=== PATIENT | female | born 1980 | race Caucasian/White ===

== ENCOUNTER 2023-12-19 10:37 | Emergency (ER) | payer OTHER, SELFPAY ==
--- NOTE | 2023-12-19 10:39 | ED.DENTAL ---
HPI - Dental/Oral General Chief complaint: Dental/Oral Stated complaint: Dental Pain Time Seen by Provider: 12/19/23 10:39 Source: patient Mode of arrival: ambulatory Limitations: no limitations History of Present Illness HPI Narrative: Patient is a 43-year-old female that presents with left lower dental and jaw pain that started yesterday. Patient has multiple decayed teeth. Reports dentist wants her to have all the teeth pulled and dentures placed has not committed. Patient was seen by PCP on and was not having dental pain at that time. Denies any better taste in mouth, difficulty swallowing. Patient call dentist and not able to get in for 2 weeks. Related Data Allergies Allergy/AdvReac Type Severity Reaction Status Date / Time No Known Allergies Allergy Unknown Verified 12/19/23 10:52 Review of Systems Review of Systems: All systems reviewed & are unremarkable except as noted in HPI and below Constitutional: Constitutional: Denies body ache(s), Denies fever(s), Denies headache(s), Denies malaise and Denies weakness Eyes: Eyes: Denies loss of vision ENT: Denies otalgia, Reports facial pain (jaw), Denies headache(s), Denies nasal discharge, Denies sinus pain and Denies sore throat Cardiovascular: Cardiovascular: Denies chest pain, Denies irregular heart rhythm and Denies dyspnea Respiratory: Respiratory: Denies dyspnea Gastrointestinal: Gastrointestinal: Denies abdominal pain, Denies melena, Denies hematochezia, Denies diarrhea, Denies nausea and Denies vomiting Musculoskeletal: Musculoskeletal: Denies back pain, Denies myalgias and Denies arthralgias Integumentary/Breasts: Skin/Breast: Denies pruritus and Denies rash Neurologic: Denies headache(s), Denies loss of vision and Denies weakness Psychiatric: Psychiatric: Reports no additional psychiatric complaints PMFSH Past Medical History Medical History Anxiety disorder Breast asymmetry Frequent headaches Iron deficiency Psoriasis Psoriatic arthritis Screening mammogram, encounter for Vaginal delivery [facility] no complications 04/17/07 [facility] no complications 01/31/15 [facility] no complications Surgical History Surgical History History of dilation and curettage (11/12/19) Hysteroscopy D&C Lscope BL tubal ligation, Darshana Ablation; Menometrorrhagia, undesired fertility History of endometrial ablation (11/12/19) Hysteroscopy D&C Lscope BL tubal ligation, Adrshana Ablation; Menometrorrhagia, undesired fertility History of tubal ligation (11/12/19) Family History Family History Father Alcohol abuse Sibling Alcohol abuse brother Diabetes mellitus Mother Asthma Son Asthma Depression Social History Social History Smoking packs per day: 0.5 Smoking cigarettes per day: 10.0 Smoking status: Current every day smoker Tobacco type: cigarettes Alcohol intake: never Substance use: never Substance use type: does not use Living arrangements: other Additional living arrangements comments: single 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 There is no relevant family history pertinent to the presenting complaint. Exam Const: General: cooperative, healthy appearing, comfortable, no acute distress and well nourished Nutritional Appearance: well nourished Orientation/consciousness: patient oriented x3 Limitations: no limitations HENMT: Head: normal to inspection, normocephalic and atraumatic Ears: hearing
[2023-12-19 10:49] VITALS: BP 126/63; PULSE 97; RESP 16; TEMP 36.9; O2SAT 100
== END 2023-12-19 11:08 | disposition home or self-care (01) ==
PROVIDERS: Emergency Provider Nurse Practitioner Family; PCP Nurse Practitioner Family
DX: K04.7 Periapical abscess without sinus (principal); F17.210 Nicotine dependence, cigarettes, uncomplicated; L40.9 Psoriasis, unspecified; L40.50 Arthropathic psoriasis, unspecified
CPT/HCPCS: 99213; G0463

== ENCOUNTER 2024-11-13 09:52 | Emergency (ER) | payer OTHER, SELFPAY ==
--- NOTE | 2024-11-13 09:56 | ED_ITS ---
HPI - Dental/Oral General Chief complaint: Dental/Oral Stated complaint: Dental Pain Time Seen by Provider: 11/13/24 09:55 Source: patient Mode of arrival: ambulatory Limitations: no limitations History of Present Illness HPI Narrative: Patient is a 44-year-old female that presents with right lower dental pain and ear pain that started last night. Patient has lower right jaw swelling and tenderness. Denies any fever, chills, nausea, vomiting, diarrhea. Patient called the dentist and has appointment next week. Related Data Home Medications ?Medication ?Instructions ?Recorded ?Confirmed ?Last Taken ?Type adalimumab 40 mg/0.4 mL 40 mg subcut DAILY 02/25/24 06/18/24 Unknown History subcutaneous pen kit (Humira(CF) Pen) folic acid 1 mg tablet 1 mg PO DAILY 02/25/24 06/18/24 Unknown History methotrexate sodium 2.5 mg tablet 2.5 mg PO DAILY 02/25/24 06/18/24 Unknown History Allergies Allergy/AdvReac Type Severity Reaction Status Date / Time No Known Allergies Allergy Unknown Verified 11/13/24 09:57 Review of Systems Review of Systems: All systems reviewed & are unremarkable except as noted in HPI and below Constitutional: Constitutional: Denies body ache(s), Denies fever(s), Denies headache(s), Denies malaise and Denies weakness Eyes: Eyes: Denies loss of vision ENT: Reports otalgia, Reports facial pain (jaw), Denies headache(s), Denies nasal discharge, Denies sinus pain and Denies sore throat Cardiovascular: Cardiovascular: Denies chest pain, Denies irregular heart rhythm and Denies dyspnea Respiratory: Respiratory: Denies dyspnea Gastrointestinal: Gastrointestinal: Denies abdominal pain, Denies melena, Denies hematochezia, Denies diarrhea, Denies nausea and Denies vomiting Musculoskeletal: Musculoskeletal: Denies back pain, Denies myalgias and Denies arthralgias Integumentary/Breasts: Skin/Breast: Denies pruritus and Denies rash Neurologic: Denies headache(s), Denies loss of vision and Denies weakness Psychiatric: Psychiatric: Reports no additional psychiatric complaints PMFSH Past Medical History Medical History Breast asymmetry Screening mammogram, encounter for Psoriatic arthritis Vaginal delivery 06/15/00 [facility] no complications 04/17/07 [facility] no complications 01/31/15 [facility] no complications Psoriasis Frequent headaches Anxiety disorder Iron deficiency Surgical History Surgical History History of endometrial ablation (11/12/19) Hysteroscopy D&C Lscope BL tubal ligation, Darshana Ablation; Menometrorrhagia, undesired fertility History of dilation and curettage (11/12/19) Hysteroscopy D&C Lscope BL tubal ligation, Darshana Ablation; Menometrorrhagia, undesired fertility History of tubal ligation (11/12/19) Family History Family History Father Alcohol abuse Sibling Alcohol abuse brother Diabetes mellitus Mother Asthma Son Asthma Depression Social History Social History Smoking packs per day: 0.5 Smoking cigarettes per day: 10.0 Years smoked: 20 Smoking pack-years: 10.00 Smoking status: Current every day smoker Tobacco type: cigarettes Alcohol intake: never Substance use: never Substance use type: does not use Living arrangements: with family Additional living arrangements comments: single 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 There is no relevant family history pertinent to the presenting complaint. Exam Const: General: cooperative, healthy appearing, comfortable, no acute distress and well nourished Nutritional Appearance: well nourished Orientation/consciousness: patient oriented x3 Limitations: no limitations HENMT: Head: normal to inspection, normocephalic and atraumatic Ears: hearing grossly normal bilaterally, external ears normal, TM's normal bilaterally and mastoids normal bilaterally Face/Nose/Sinus: Normal external nose present, normal facial exam and face symmetric Face and sinus: normal facial exam and face symmetric Mouth: Yes Normal oral and palatal mucosa pres ent, Yes lip normal, Yes tongue normal, Yes Normal salivary glands and ducts present and Yes moist mucous membranes Teeth and gingiva: abnormal tooth and associated gingiva lower right first molar tender and dentin fractured, caries and poor dentition Eyes: General: appearance normal, both eyes and all related structures Alignment and Position: alignment normal and position normal Periorbital: periorbital findings normal Eyelids: eyelids normal Pupils: Equal, round and reactive pupils present EOM: EOMs intact bilaterally Neck: Neck: normal visual inspection, full ROM, no lymphadenopathy and supple Chest: Chest palpation & inspection: normal inspection of the chest Resp: Effort & Inspection: normal respiratory effort and able to speak in complete sentences Auscultation: clear to auscultation bilaterally Cardio: Rate: regular rate Rhythm: regular rhythm Heart sounds: S1 normal heart sound present and S2 normal heart sound present GI: Inspection: normal to inspection Skin: General skin exam: normal color and no rashes or lesions noted Neuro: General: patient oriented x3 and moves all extremities Cranial nerves: Yes Equal, round and reactive pupils present Speech: normal speech Gait exam (Neuro): Normal gait present Extrem: General: normal to inspection, full ROM and no edema Psych: Appearance: grossly normal and well kempt Mental Status: mental status grossly normal Speech and movement: Normal speech and movement present Affect: normal affect Attitude: cooperative Thought process: Normal thought process present Course Course Emergency Course: Patient is aware of diagnosis, understands and agrees to treatment plan. Anticipatory guidance given. Patient agrees to follow-up as directed and is aware of reasons to seek care at the emergency department. Portions of this record may have been created with voice recognition software Level of Care: Express Care Visit Vital Signs Vital signs: Vital Signs Temperature 36.9 C 11/13/24 09:58 Pulse Rate 96 11/13/24 09:58 Respiratory Rate 16 11/13/24 09:58 Blood Pressure 120/66 11/13/24 09:58 Pulse Oximetry 100 11/13/24 09:58 Oxygen Delivery Room Air 11/13/24 09:58 Temperature 36.9 C 11/13/24 09:58 Pulse Rate 96 11/13/24 09:58 Respiratory Rate 16 11/13/24 09:58 Blood Pressure 120/66 11/13/24 09:58 Pulse Oximetry 100 11/13/24 09:58 Oxygen Delivery Room Air 11/13/24 09:58 Reviewed MDM - Dental/Oral MDM Narrative Medical decision making narrative: Patients pain and complaint coupled with physical findings are consistant with dentalgia. There are no focal signs of space occupying lesions that are compromising to the airway; no dysphagia, odynophagia, dysphonia, or dyspnea. No uvular deviation or soft palate edema. Patient is non-toxic appearing. The floor of the mouth is soft with no signs of Duc's Angina; no induration below mandible, no neck pain. Patient is without trismus or drooling and able to swallow secretions. Patient is felt appropriate for discharge home with dental follow up. Differential Diagnosis Differential diagnosis: Likely gingival abscess, dental caries, toothache, dental abscess and fracture of tooth Medical Records Attestation: I reviewed the patient's medical records. Discharge Plan Discharge Clinical Impression: Dental abscess Patient Disposition: Home, Self-Care Condition: Stable Instructions: Dental Abscess (ED) Additional Instructions: Take antibiotic until it's gone. Brushing teeth at least twice daily with gentle flossing. Avoid temperature extremes---when you eat. Salt gargle to rinse your mouth after every meal You may apply ice to the face to reduce pain/swelling. For pain, you may take: Tylenol 650-1000mg by mouth every 4-6 hours. Do not exceed 4000mg in 24 hours. Advil (Ibuprofen) 600 mg by mouth every 6 hours. Do not exceed 2400mg in 24 hours. Also, recommend regular dental check up one-two times a year to prevent tooth decay and other periodontal disease. Follow-up with the dentist as soon as possible--see the list provided Patient Language: [place] Prescriptions: New clindamycin HCl 300 mg capsule 300 mg PO Q8H 10 Days Qty: 30 0RF No Action methotrexate sodium 2.5 mg tablet 2.5 mg PO DAILY folic acid 1 mg tablet 1 mg PO DAILY Humira(CF) Pen 40 mg/0.4 mL pen injector kit 40 mg SUBCUT DAILY Nurtec ODT 75 mg tablet,disintegrating See Rx Instructions .ROUTE .COMPLEX Qty: 8 0RF Dose Instruction: DISSOLVE 1 TABLET BY MOUTH NEEDED FOR MIGRAINE HEADACHE A SINGLE DOSE Rx Instructions: DISSOLVE 1 TABLET BY MOUTH NEEDED FOR MIGRAINE HEADACHE A SINGLE DOSE Follow-up/Referrals: Rosemary Fitzpatrick APRN [Primary Care Provider] - 3 Days Time of Disposition: 10:22
[2024-11-13 09:58] VITALS: BP 120/66; PULSE 96; RESP 16; TEMP 36.9; O2SAT 100
== END 2024-11-13 10:25 | disposition home or self-care (01) ==
PROVIDERS: Emergency Provider Nurse Practitioner Family; PCP Nurse Practitioner Family
DX: K04.7 Periapical abscess without sinus (principal); F17.210 Nicotine dependence, cigarettes, uncomplicated
CPT/HCPCS: 99213; G0463

== ENCOUNTER 2025-06-01 16:48 | Emergency (ER) | payer OTHER, SELFPAY ==
[2025-06-01 16:58] VITALS: BP 125/63; PULSE 83; RESP 18; TEMP 36.9; O2SAT 100
--- NOTE | 2025-06-01 16:58 | ED_ITS ---
HPI - General Adult General Chief complaint: Skin/Abscess/Foreign Body Stated complaint: Insect Bite Time Seen by Provider: 06/01/25 16:58 Source: patient Mode of arrival: ambulatory Limitations: no limitations History of Present Illness HPI narrative: 44-year-old female presented for complaint of a boil to the right buttock. First noticed 2 days ago. Says she got a spider bite to the area and then it got infected. Has not tried anything for treatment. Denies any other skin changes. Related Data Home Medications ?Medication ?Instructions ?Recorded ?Confirmed ?Last Taken ?Type adalimumab 40 mg/0.4 mL 40 mg subcut DAILY 02/25/24 12/16/24 Unknown History subcutaneous pen kit (Humira(CF) Pen) folic acid 1 mg tablet 1 mg PO DAILY 02/25/2412/16 Unknown History methotrexate sodium 2.5 mg tablet 2.5 mg PO DAILY 01/2912/16/24 Unknown History Allergies Allergy/AdvReac Type Severity Reaction Status Date / Time No Known Allergies Allergy Unknown Verified 06/01/25 16:57 Review of Systems Review of Systems: CONSTITUTIONAL: Denies body aches, fever, chills, or sweats. EYES: Denies visual changes, redness, or discharge. ENT: Denies rhinorrhea, congestion CARDIOVASCULAR: Denies chest pain, palpitations, or edema. RESPIRATORY: Denies cough or dyspnea. GASTROINTESTINAL: Denies abdominal pain, nausea, vomiting, or diarrhea. SKIN: reports boil on buttock MUSCULOSKELETAL: Denies back pain, joint pain, or myalgia. NEUROLOGIC: Denies headache, numbness, tingling, or weakness. [facility] Past Medical History Medical History Breast asymmetry Screening mammogram, encounter for Psoriatic arthritis Vaginal delivery 06/15/00 [facility] no complications 04/17/07 [facility] no complications 01/31/15 [place] no complications Psoriasis Frequent headaches Anxiety disorder Iron deficiency Surgical History Surgical History History of endometrial ablation (11/12/19) Hysteroscopy D&C Lscope BL tubal ligation, Darshana Ablation; Menometrorrhagia, undesired fertility History of dilation and curettage (11/12/19) Hysteroscopy D&C Lscope BL tubal ligation, Darshana Ablation; Menometrorrhagia, undesired fertility History of tubal ligation (11/12/19) Family History Family History Father Alcohol abuse Sibling Alcohol abuse brother Diabetes mellitus Mother Asthma Son Asthma Depression Social History Social History Smoking packs per day: 0.5 Smoking cigarettes per day: 10.0 Years smoked: 20 Smoking pack-years: 10.00 Smoking status: Current every day smoker Tobacco type: cigarettes Smoking end date: 08/30/24 Alcohol intake: never Substance use: never Substance use type: does not use Living arrangements: with family Additional living arrangements comments: single 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 Please see nursing chart for further information. There is no relevant family history pertinent to the presenting complaint Exam Narrative: GENERAL: Well-appearing ENT: Mucous membranes moist. CHEST: Clear to auscultation. HEART: Regular rate and rhythm. SKIN: Warm, dry. 1x1 dark red with surrounding light erythema 7cm diameter tender, no fluctuance or active drainage NEURO: Alert and oriented x3. Course Course Emergency Course: Patient is aware of diagnosis, understands and agrees to treatment plan. Anticipatory guidance given. Patient agrees to follow-up as directed and is aware of reasons to seek care at the emergency department. Portions of this record may have been created with voice recognition software Level of Care: Express Care Visit Vital Signs Vital signs: Vital Signs Temperature 98.5 F 06/01/25 16:58 Pulse Rate 83 06/01/25 16:58 Respiratory Rate 18 06/01/25 16:58 Blood Pressure 125/63 06/01/25 16:58 Pulse Oximetry 100 06/01/25 16:58 Oxygen Delivery Room Air 06/01/25 16:58 Temperature 98.5 F 06/01/25 16:58 Pulse Rate 83 06/01/25 16:58 Respiratory Rate 18 06/01/25 16:58 Blood Pressure 125/63 06/01/25 16:58 Pulse Oximetry 100 06/01/25 16:58 Oxygen Delivery Room Air 06/01/25 16:58 Reviewed Medical Decision Making MDM Narrative Medical decision making narrative: Discussed physical exam findings Consistent with right buttock abscess. Reviewed prescription Advised supportive measures and signs/symptoms to go to the ER. Pt is appropriate for outpt treatment and f/u. Differential Diagnosis Differential Diagnosis: abscess, cellulitis, insect bite, folliculitis Vital Signs Vital Signs: Vital Signs Temperature 98.5 F 06/01/25 16:58 Pulse Rate 83 06/01/25 16:58 Respiratory Rate 18 06/01/25 16:58 Blood Pressure 125/63 06/01/25 16:58 Pulse Oximetry 100 06/01/25 16:58 Oxygen Delivery Room Air 06/01/25 16:58 Temperature 98.5 F 06/01/25 16:58 Pulse Rate 83 06/01/25 16:58 Respiratory Rate 18 06/01/25 16:58 Blood Pressure 125/63 06/01/25 16:58 Pulse Oximetry 100 06/01/25 16:58 Oxygen Delivery Room Air 06/01/25 16:58 Discharge Plan Discharge Clinical Impression: Abscess of skin or subcutaneous tissue Patient Disposition: Home Condition: Stable Instructions: Antibiotic Form, Abscess (ED) Additional Instructions: You may shower and Cleanse with warm soapy water Warm compresses at least 4 times a day to the site to help expel any drainage. Keep your wound covered while draining Take antibiotic as directed Tylenol and ibuprofen every 8 hours for pain as needed Follow up with your primary care physician in 3 days for a wound check. Go to the Emergency Department immediately if you develop any of the following symptoms: Fevers, Increased redness, pain, or swelling etc Patient Language: [place] Prescriptions: New cephalexin 500 mg capsule 500 mg PO Q6H 7 Days Qty: 28 0RF No Action azelastine 0.05 % drops 1 drp EACH EYE BID Qty: 6 3RF fluticasone propionate 50 mcg/actuation spray,suspension 1 spray intranasal BID Qty: 16 3RF Rx Instructions: administer into each nostril methotrexate sodium 2.5 mg tablet 2.5 mg PO DAILY folic acid 1 mg tablet 1 mg PO DAILY Humira(CF) Pen 40 mg/0.4 mL pen injector kit 40 mg SUBCUT DAILY Nurtec ODT 75 mg tablet,disintegrating See Rx Instructions .ROUTE .COMPLEX Qty: 8 0RF Dose Instruction: DISSOLVE 1 TABLET BY MOUTH NEEDED FOR MIGRAINE HEADACHE A SINGLE DOSE Rx Instructions: DISSOLVE 1 TABLET BY MOUTH NEEDED FOR MIGRAINE HEADACHE A SINGLE DOSE Follow-up/Referrals: Rosemary Fitzpatrick APRN [Primary Care Provider, Internal Medicine]
== END 2025-06-01 17:19 | disposition home or self-care (01) ==
PROVIDERS: Emergency Provider Nurse Practitioner Family; PCP Nurse Practitioner Family
DX: L02.31 Cutaneous abscess of buttock (principal); L40.50 Arthropathic psoriasis, unspecified; L40.9 Psoriasis, unspecified; E61.1 Iron deficiency; Z87.891 Personal history of nicotine dependence
CPT/HCPCS: 99213; G0463